=== PATIENT | female | born 1995 | race American Indian/Alaskan Native ===

== ENCOUNTER 2019-08-10 08:14 | Emergency (ER) | payer SELFPAY ==
[2019-08-10 08:55] VITALS: BP 129/86
--- NOTE | 2019-08-10 10:55 | Emergency Department Report ---
ED General Adult HPI - General Chief complaint: Skin/Abscess/Foreign Body Stated complaint: CYST Time Seen by Provider: 08/10/19 10:11 Source: patient Mode of arrival: Ambulatory Limitations: No Limitations - History of Present Illness Initial comments: 23-year-old -[place] female patient without significant past medical history presents with complaints of right buttock abscess x2 days. 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 She rates her current pain as a 9/10 in severity and states the abscess is open and draining. She denies any fever/chills/sweats. -: Gradual - Related Data Previous Rx's Medication Instructions Recorded Last Taken Type Acetaminophen/Codeine [Tylenol 1 tab PO Q6H PRN #10 tab 08/10/19 Unknown Rx /Codeine # 3 tab] Ibuprofen [Motrin 800 MG tab] 800 mg PO Q8HR PRN #21 tablet 08/10/19 Unknown Rx Mupirocin [Bactroban 2% OINT] 1 applic TP TID 7 Days #1 tube 08/10/19 Unknown Rx Sulfamethoxazole/Trimethoprim 1 each PO BID 1 Days #20 tablet 08/10/19 Unknown Rx [Bactrim DS TAB] Allergies Allergy/AdvReac Type Severity Reaction Status Date / Time No Known Allergies Allergy Verified 08/10/19 08:55 ED Review of Systems ROS: Stated complaint: CYST Other details as noted in HPI Constitutional: denies: chills, fever Gastrointestinal: denies: nausea, vomiting Musculoskeletal: denies: myalgia Neurological: denies: headache Hematological/Lymphatic: denies: swollen glands ED Past Medical Hx - Past Medical History Previous Medical History?: No - Surgical History Past Surgical History?: No - Social History Smoking Status: Never Smoker - Medications Home Medications: Home Medications Medication Instructions Recorded Confirmed Last Taken Type Acetaminophen/Codeine [Tylenol 1 tab PO Q6H PRN #10 tab 08/10/19 Unknown Rx /Codeine # 3 tab] Ibuprofen [Motrin 800 MG tab] 800 mg PO Q8HR PRN #21 tablet 08/10/19 Unknown Rx Mupirocin [Bactroban 2% OINT] 1 applic TP TID 7 Days #1 tube 08/10/19 Unknown Rx Sulfamethoxazole/Trimethoprim 1 each PO BID 1 Days #20 tablet 08/10/19 Unknown Rx [Bactrim DS TAB] ED Physical Exam - General Limitations: No Limitations General appearance: alert, in no apparent distress - Head Head exam: Present: atraumatic, normocephalic - Eye Eye exam: Absent: scleral icterus - Respiratory Respiratory exam: Absent: respiratory distress - Cardiovascular Cardiovascular Exam: Present: regular rate, normal rhythm - Bi-manual exam: Present: other (6 cm round indurated area noted with central small opening with active yellow purulent drainage. There is mild erythema and significant tenderness to palpation) - Extremities Exam Extremities exam: Present: full ROM ED Course Vital Signs 08/10/19 08:50 Temperature 98.4 F Pulse Rate 100 H Respiratory 18 Rate Blood Pressure 129/86 O2 Sat by Pulse 100 Oximetry - I & D Buttocks Site: Right buttock Blade Size: 11 I & D Procedure: betadine prep, sterile drapes applied, sterile dressing applied, gauze wick placed Progress: Patient was numbed using 10 cc of 1% lidocaine with epi. Minimal bleeding occurred during procedure. Patient tolerated procedure well and no immediate complications were observed post procedure. Sterile dressing was placed over wound. ED Medical Decision Making - Medical Decision Making Patient here with right buttock abscess. Incision and drainage performed. Sample was taken for wound culture. Patient is well-appearing and vitals are stable. She is stable for discharge home. Prescription for Bactrim and Bactroban given. Discussed wound care instructions and strict return precautions in great detail with patient who verbalizes understanding. Patient to return in 2 days for packing removal and wound recheck. Critical care attestation.: If time is entered above; I have spent that time in minutes in the direct care of this critically ill patient, excluding procedure time. ED Disposition Clinical Impression: Abscess of buttock, right Disposition: [id number] TO HOME OR SELFCARE Is pt being admited?: No Condition: Stable Instructions: Abscess Incision and Drainage (ED) Prescriptions: Sulfamethoxazole/Trimethoprim [Bactrim DS TAB] 1 each PO BID 1 Days #20 tablet Mupirocin [Bactroban 2% OINT] 1 applic TP TID 7 Days #1 tube Ibuprofen [Motrin 800 MG tab] 800 mg PO Q8HR PRN #21 tablet PRN Reason: pain Acetaminophen/Codeine [Tylenol /Codeine # 3 tab] 1 tab PO Q6H PRN #10 tab PRN Reason: Pain , Severe (7-10) Referrals: MISTI CASPER MD [Staff Physician] - 3-5 Days [facility] [Provider Group] - 3-5 Days
== END 2019-08-10 11:12 | disposition home or self-care (01) ==
LOC: ED 08:14
DX: L02.31 Cutaneous abscess of buttock (principal); Z79.899 Other long term (current) drug therapy
CPT/HCPCS: 87076; 87116; 87186

== ENCOUNTER → 2021-08-10 | Emergency (ER) | payer SELFPAY ==
[2021-08-10 03:18] VITALS: BP 133/99
== END ==
LOC: ED 03:10
DX: T78.40XA Allergy, unspecified, initial encounter (principal); Z53.21 Procedure and treatment not carried out due to patient leaving prior to being seen by health care provider; X58.XXXA Exposure to other specified factors, initial encounter